=== PATIENT | male | born 1950 | race Caucasian/White ===

== ENCOUNTER 2017-09-25 10:51 | Day surgery (SDC) | payer MEDICARE, MEDICAID ==
[2017-09-25] MEDS ORDERED: Lactated Ringer's 1,000 ML IV ONE (13:55)
[2017-09-25] MEDS ORDERED: Propofol 10 mg/ml Inj (20 ML) ONE (14:00)
[2017-09-25] MEDS ORDERED: Lidocaine Hydrochloride 5 ML INJ ONE (14:25)
[2017-09-25 14:50] VITALS: TEMP 97.1
[2017-09-25 15:11] VITALS: RESP 18
[2017-09-25 15:30] VITALS: BP 138/80; PULSE 69; O2SAT 99
== END 2017-09-25 15:27 | disposition home or self-care (01) ==
LOC: C.ENDO 10:51
PROVIDERS: ATTEND Internal Medicine Gastroenterology
DX: Z12.11 Encounter for screening for malignant neoplasm of colon (principal); D12.4 Benign neoplasm of descending colon; K63.5 Polyp of colon; K29.50 Unspecified chronic gastritis without bleeding; B96.81 Helicobacter pylori [H. pylori] as the cause of diseases classified elsewhere; R93.3 Abnormal findings on diagnostic imaging of other parts of digestive tract; K64.1 Second degree hemorrhoids; K44.9 Diaphragmatic hernia without obstruction or gangrene; I10 Essential (primary) hypertension
CPT/HCPCS: 43239; 45380; 45381; 45385; 88305; 88342; J2704; J7120